=== PATIENT | male | born 1955 | race Caucasian/White ===

== ENCOUNTER 2018-12-02 06:56 | Observation (INO) | payer OTHER ==
[~2018-12-02] VITALS: Ht 188 cm; Wt 108.5 kg
[2018-12-02] VITALS (15 sets, daily range): BP systolic 113–170; BP diastolic 64–111
[2018-12-02 07:33] LABS: CLARITY,URINE CLEAR (Clear); COLOR,URINE AMBER (Yellow); GLUCOSE, URINE NEGATIVE (Neg); KETONES,URINE TRACE mg/dl (Neg); LEUKOCYTE ESTERASE ,URINE NEGATIVE (Neg); OCCULT BLOOD,URINE TRACE-INTACT (Neg); PROTEIN,URINE TRACE mg/dl (Neg)
[2018-12-02 07:38] LABS: HEMATOCRIT 51.6 % (42.0-52.0); MONOCYTES # (AUTO) 0.8 X10'3 (0-0.9); MONOCYTES % (AUTO) 6.2 % (2-12); WHITE BLOOD COUNT 12.7 X10'3 (4.5-11.0)
[2018-12-02 07:40] LABS: UA COLLECTION TYPE CLN CATCH MIDSTREAM
[2018-12-02 07:40] LABS: BASOPHILS % (AUTO) 0.3 % (0-1); EOSINOPHILS % (AUTO) 0.2 % (0-6); HEMOGLOBIN 17.8 g/dl (14.0-17.9); LYMPHOCYTES # (AUTO) 1.8 X10'3 (1.1-4.8); LYMPHOCYTES % (AUTO) 13.8 % (21-51); MEAN CORPUSCULAR HEMOGLOBIN 34.2 PG (27.0-31.0); MEAN CORPUSCULAR HGB CONC 34.4 g/dL (33.0-36.5); MEAN CORPUSCULAR VOLUME 99.3 FL (78-98); MEAN PLATELET VOLUME 8.1 FL (7.4-10.4); NEUTROPHILS # (AUTO) 10.1 X10'3 (1.8-7.7); NEUTROPHILS % (AUTO) 79.5 % (42-75); PLATELET COUNT 189 X10'3 (140-440); RED CELL DISTRIBUTION WIDTH 14.2 % (11.5-14.5)
[2018-12-02 07:45] LABS: NITRITES, URINE NEGATIVE (Neg)
[2018-12-02 07:46] LABS: BACTERIA,URINE NONE SEEN /HPF (Neg); MUCUS STRANDS FEW /LPF (Neg); RBC,URINE NONE SEEN /HPF (0-2); SQUAMOUS EPITHELIAL CELL,UR FEW /LPF (FEW); WBC,URINE 0-4 /HPF (0-4)
[2018-12-02 07:54] LABS: ANION GAP 13 (8-16); BILIRUBIN,TOTAL 1.8 MG/DL (0.1-1.0); BLOOD UREA NITROGEN 11 MG/DL (7-18); BUN/CREATININE RATIO 8.5 (5.4-32.0); CALCIUM 9.4 MG/DL (8.5-10.1); CHLORIDE 101 MMOL/L (99-107); CREATININE 1.29 MG/DL (0.60-1.10); GLUCOSE 117 MG/DL (70-104); POTASSIUM 3.6 MMOL/L (3.5-5.1); SODIUM 137 MMOL/L (135-145); TOTAL CARBON DIOXIDE 22.6 MMOL/L (24-32); TOTAL PROTEIN 7.7 G/DL (6.4-8.2); eGFR 56 ML/MIN
[2018-12-02 07:55] LABS: ALANINE AMINOTRANSFERASE 44 U/L (12-78); ALBUMIN 3.7 G/DL (3.4-5.0); ALBUMIN/GLOBULIN RATIO 0.9 (1.1-1.5); ALKALINE PHOSPHATASE 118 IU/L (46-116); ASPARTATE AMINO TRANSFERASE 27 U/L (10-37); LIPASE 84 U/L (73-393)
[2018-12-02] MEDS ORDERED: cefoxitin sod inj 2,000 MG in normal saline 100ml IV soln 100 ML IV SCH (07:55)
[2018-12-02] MEDS ORDERED: ondansetron/PF 4mg/2ml inj IV ONE (07:55)
[2018-12-02] MEDS ORDERED: normal saline 1000ML IV soln IV ONE (07:55)
[2018-12-02] MEDS ORDERED: ceFOXitin sod/dextrose 2g/50ml 50 ML IV ONE (08:00)
[2018-12-02] MEDS ORDERED: potassium Cl 20 mEq SR tablet PO PRN ×2 (09:20)
[2018-12-02] MEDS ORDERED: magnesium 4gm in 100ml NS 100 ML IV PRN (09:20)
[2018-12-02] MEDS ORDERED: acetaminophen 325mg tablet PO PRN (09:20)
[2018-12-02] MEDS ORDERED: potassium CL 10mEq/100ml bag 100 ML IV PRN ×2 (09:20)
[2018-12-02] MEDS ORDERED: magnesium Cl slow-release 64mg tablet PO PRN (09:20)
[2018-12-02] MEDS ORDERED: magnesium 2GM in 50ml NS 50 ML IV PRN (09:20)
[2018-12-02] MEDS ORDERED: ondansetron/PF 4mg/2ml inj IV PRN ×2 (09:20→11:40)
[2018-12-02] MEDS ORDERED: nicotine 21mg patch - 24 hr TD ONE (09:25)
[2018-12-02] MEDS ORDERED: NO HOME MEDS (09:32)
[2018-12-02] MEDS: levoFLOXACIN-Levaquin 500mg/D5 100 ML IV SCH (09:42)
[2018-12-02] MEDS: HYDROmorphone inj. 0.5 MG/0.5 ML DISP.SYRIN IV PRN ×2 (10:02→16:37)
[2018-12-02] MEDS ORDERED: LIDOcaine 1% 30ml preserv. free vial ONE (11:16)
[2018-12-02] MEDS ORDERED: BUPIVAcaine/PF 2.5 mg/ml (0.25%) 30ml vial ONE (11:16)
[2018-12-02] MEDS ORDERED: ringers solution, lacted 1,000 ML IV SCH (11:39)
[2018-12-02] MEDS ORDERED: meperidine/PF 25mg/ml syringe IV PRN ×3 (11:40)
[2018-12-02] MEDS ORDERED: morphine 4 MG/ML inj SYRINge IV PRN ×2 (11:40)
[2018-12-02] MEDS ORDERED: proCHLORperazine 10 MG/2 ml inj IV PRN (11:40)
[2018-12-02] MEDS ORDERED: HYDROmorphone inj. 0.5 MG/0.5 ML DISP.SYRIN IV ONE (11:45)
[2018-12-02] MEDS ORDERED: ceFOXitin 2 GM ADDVANTGE BAG 50 ML IV ONE (12:25)
[2018-12-02] MEDS ORDERED: fentaNYL/PF 50MCG/1 ML 2ML syringe ONE (12:26)
[2018-12-02] MEDS ORDERED: midazolam 2 mg/2 ml injection ONE (12:27)
[2018-12-02] MEDS ORDERED: propofol inj 20 ML IV ONE (12:29)
[2018-12-02] MEDS ORDERED: neostigmine methylsulfate 1 MG/ML 10ml vial ONE (13:05)
[2018-12-02] MEDS ORDERED: rocuronium 10mg/ml inj IV ONE (13:05)
[2018-12-02] MEDS ORDERED: glycopyrrolate 0.2mg/ml inj ONE (13:09)
[2018-12-02] MEDS ORDERED: HYDROcodone/acetaminophen 5mg/325mg tablet PO PRN ×2 (13:25)
--- NOTE | 2018-12-02 13:26 | NUR ---
Received from OR via , accompanied by Anesthesiologist DR LOFTON and report given by Anesthesiolgist. AWAKENS TO VOICE. VITALS STABLE. DRESSINGS DI. CECI PAIN. ABD SOFT.
--- NOTE | 2018-12-02 14:16 | NUR ---
Received report from LUCY Miguel in recovery. received patient to floor. patient pleasant, reports minimal pain at this time. will continue to monitor.
--- NOTE | 2018-12-02 14:16 | NUR ---
Report called to receiving nurse. Transferred via [facility] . Special Issues communicated to receiving nurse. AWAKE AND ORIENTED. VITALS STABLE. DRESSINGS DI. CECI PAIN. TO SURGICAL RM 348B AT THIS TIME.
[2018-12-02] MEDS: ketorolac tromethamine 15mg/ml inj. IV SCH ×2 (14:32→19:38)
[2018-12-02] MEDS: metroNIDAZOLE-Flagyl 500mg/NS 100 ML IV SCH (16:18)
[2018-12-02] MEDS: normal saline 1000ml 1,000 ML IV SCH ×2 (16:18→19:19)
[2018-12-02] MEDS ORDERED: enalaprilat dihydrate 2.5mg/2ml vial IV ONE (17:25)
--- NOTE | 2018-12-02 17:45 | NUR ---
Patient's blood pressure elevated at 171/111, notified Dr. Simmons and Dr. Ochoa. Per Dr. Ochoa, gave patient Vasotec 1.25 mg IV one time, patient's blood pressure now coming down at 151/89. Will continue to monitor.
--- NOTE | 2018-12-02 18:30 | NUR ---
Patient in room [facility] 348. I have received report from LUCY Lima and had the opportunity to ask questions and assume patient care.
--- NOTE | 2018-12-02 18:32 | NUR ---
Problems reprioritized. Patient report given, questions answered & plan of care reviewed with LUCY Lopez.
--- NOTE | 2018-12-02 18:43 | NUR ---
pt refusing to be connected to IVF.
[2018-12-02] MEDS: lactobacillus rhamnosus 10,000 MMU CELLS/CAPSULE PO SCH (19:37)
[2018-12-02] MEDS: calcium carbonate 500mg chew tablet PO SCH (20:41)
[2018-12-03] MEDS: ketorolac tromethamine 15mg/ml inj. IV SCH ×2 (02:29→07:19)
[2018-12-03 05:10] LABS: ALBUMIN 2.9 G/DL (3.4-5.0); ANION GAP 11 (8-16); BLOOD UREA NITROGEN 10 MG/DL (7-18); BUN/CREATININE RATIO 9.6 (5.4-32.0); CALCIUM 8.3 MG/DL (8.5-10.1); CHLORIDE 104 MMOL/L (99-107); CREATININE 1.04 MG/DL (0.60-1.10); GLUCOSE 128 MG/DL (70-104); MAGNESIUM 1.7 MG/DL (1.5-2.4); POTASSIUM 4.6 MMOL/L (3.5-5.1); SODIUM 137 MMOL/L (135-145); TOTAL CARBON DIOXIDE 22.1 MMOL/L (24-32); eGFR 72 ML/MIN
[2018-12-03] MEDS: normal saline 1000ml 1,000 ML IV SCH (05:19)
--- NOTE | 2018-12-03 06:21 | NUR ---
Problems reprioritized. Patient report given, questions answered & plan of care reviewed with LUCY Lima.
--- NOTE | 2018-12-03 06:28 | NUR ---
Patient in room [facility] 348. I have received report from SHAISTA MANUEL RN and had the opportunity to ask questions and assume patient care.
[2018-12-03 06:57] VITALS: BP 145/100
[2018-12-03] MEDS: lactobacillus rhamnosus 10,000 MMU CELLS/CAPSULE PO SCH (07:18)
[2018-12-03] MEDS: calcium carbonate 500mg chew tablet PO SCH ×2 (07:18→12:30)
[2018-12-03] MEDS: levoFLOXACIN-Levaquin 500mg/D5 100 ML IV SCH (07:19)
[2018-12-03] MEDS ORDERED: K and/or MAG REPLACEMENT MC SCH (08:00)
[2018-12-03] MEDS: metroNIDAZOLE-Flagyl 500mg/NS 100 ML IV SCH ×2 (08:44)
[2018-12-03 09:31] LABS: BASOPHILS % (AUTO) 0.1 % (0-1); EOSINOPHILS % (AUTO) 0 % (0-6); HEMATOCRIT 46.4 % (42.0-52.0); HEMOGLOBIN 15.6 g/dl (14.0-17.9); LYMPHOCYTES # (AUTO) 0.6 X10'3 (1.1-4.8); LYMPHOCYTES % (AUTO) 6.4 % (21-51); MEAN CORPUSCULAR HEMOGLOBIN 34.1 PG (27.0-31.0); MEAN CORPUSCULAR HGB CONC 33.6 g/dL (33.0-36.5); MEAN CORPUSCULAR VOLUME 101.4 FL (78-98); MEAN PLATELET VOLUME 8.8 FL (7.4-10.4); MONOCYTES # (AUTO) 0.4 X10'3 (0-0.9); MONOCYTES % (AUTO) 4.1 % (2-12); NEUTROPHILS % (AUTO) 89.4 % (42-75); PLATELET COUNT 156 X10'3 (140-440); RED BLOOD COUNT 4.58 X10'6 (4.70-6.10); RED CELL DISTRIBUTION WIDTH 13.9 % (11.5-14.5); WHITE BLOOD COUNT 10.1 X10'3 (4.5-11.0)
[2018-12-03 11:44] VITALS: BP 148/88
== END 2018-12-03 12:35 | disposition home or self-care (01) ==
LOC: ER 06:57 → SUR 3N 12:54
PROVIDERS: ADMIT Internal Medicine; ATTEND Internal Medicine
DX: K35.891 Other acute appendicitis without perforation, with gangrene (principal); A41.9 Sepsis, unspecified organism; K80.20 Calculus of gallbladder without cholecystitis without obstruction; K21.9 Gastro-esophageal reflux disease without esophagitis; R11.2 Nausea with vomiting, unspecified; K57.30 Diverticulosis of large intestine without perforation or abscess without bleeding; R79.89 Other specified abnormal findings of blood chemistry; F32.9 Major depressive disorder, single episode, unspecified; I10 Essential (primary) hypertension; I96 Gangrene, not elsewhere classified; J18.9 Pneumonia, unspecified organism; F17.210 Nicotine dependence, cigarettes, uncomplicated; Z98.1 Arthrodesis status; Z88.5 Allergy status to narcotic agent
CPT/HCPCS: 36415; 44970; 74176; 80048; 80053; 81001; 83605; 83690; 83735; 85025; 85610; 87040; 87081; 96361; 96365; 96366; 96367; 96375; 96376; 99284; G0378; J0694; J1170; J1885; J1956; J2001; J2175; J2250; J2704; J2710; J3010; J3490; J7030; J7120; A4215; A4618; A7000

== ENCOUNTER 2019-07-26 06:10 | Inpatient (IN) | payer OTHER ==
[~2019-07-26] VITALS: Ht 188 cm; Wt 100.0 kg
[~2019-07-26 06:10] MED LIST: NO HOME MEDS
[2019-07-26] MEDS ORDERED: adenosine 3mg/ml 2ml vial IV ONE ×3 (06:24→06:30)
[2019-07-26] MEDS ORDERED: diltiazem 5mg/ml 5ml inj. IV ONE ×3 (06:25→06:50)
[2019-07-26] MEDS ORDERED: morphine 4 MG/ML inj SYRINge ONE (06:27)
[2019-07-26 06:28] LABS: BASOPHILS % (AUTO) 0.2 % (0-1); EOSINOPHILS % (AUTO) 0.3 % (0-6); HEMATOCRIT 54.4 % (42.0-52.0); LYMPHOCYTES # (AUTO) 2.2 X10'3 (1.1-4.8); LYMPHOCYTES % (AUTO) 15.4 % (21-51); MEAN CORPUSCULAR HEMOGLOBIN 34.9 PG (27.0-31.0); MEAN CORPUSCULAR HGB CONC 34.3 g/dL (33.0-36.5); MEAN CORPUSCULAR VOLUME 101.9 FL (78-98); MEAN PLATELET VOLUME 8.3 FL (7.4-10.4); MONOCYTES # (AUTO) 1.4 X10'3 (0-0.9); MONOCYTES % (AUTO) 9.4 % (2-12); NEUTROPHILS # (AUTO) 10.8 X10'3 (1.8-7.7); NEUTROPHILS % (AUTO) 74.7 % (42-75); PLATELET COUNT 312 X10'3 (140-440); RED BLOOD COUNT 5.34 X10'6 (4.70-6.10); RED CELL DISTRIBUTION WIDTH 13.8 % (11.5-14.5); WHITE BLOOD COUNT 14.4 X10'3 (4.5-11.0)
[2019-07-26] MEDS ORDERED: morphine 2 MG/ML inj. syringe IV STA (06:28)
[2019-07-26 06:32] LABS: HEMOGLOBIN 18.7 g/dl (14.0-17.9)
[2019-07-26] MEDS ORDERED: normal saline 1000ML IV soln IVB ONE (06:35)
[2019-07-26 06:41] LABS: ALANINE AMINOTRANSFERASE 38 U/L (12-78); ALBUMIN 3.9 G/DL (3.4-5.0); ALBUMIN/GLOBULIN RATIO 0.9 (1.1-1.5); ALKALINE PHOSPHATASE 182 IU/L (46-116); ANION GAP 11 (8-16); ASPARTATE AMINO TRANSFERASE 49 U/L (10-37); BILIRUBIN,TOTAL 2.4 MG/DL (0.1-1.0); BLOOD UREA NITROGEN 11 MG/DL (7-18); BUN/CREATININE RATIO 7.3 (5.4-32.0); CALCIUM 10.5 MG/DL (8.5-10.1); CHLORIDE 100 MMOL/L (99-107); GLUCOSE 130 MG/DL (70-104); POTASSIUM 3.8 MMOL/L (3.5-5.1); SODIUM 138 MMOL/L (135-145); TOTAL PROTEIN 8.2 G/DL (6.4-8.2); eGFR 47 ML/MIN
[2019-07-26] MEDS ORDERED: morphine 2 MG/ML inj. syringe IV ONE (06:45)
[2019-07-26] MEDS ORDERED: FEXO180T94 PO (07:05)
[2019-07-26] MEDS ORDERED: acetaminophen 325mg tablet PO PRN (07:20)
[2019-07-26] MEDS ORDERED: ondansetron/PF 4mg/2ml inj IV PRN (07:20)
[2019-07-26] MEDS ORDERED: magnesium hydroxide 30ml (MOM) UD suspension PO PRN (07:20)
[2019-07-26] MEDS ORDERED: mag hydrox/Alum hydrox/simeth 30ml oral suspension PO PRN (07:20)
--- NOTE | 2019-07-26 07:26 | NUR ---
Pt is aware that we need a urine sample. Pt unable to give a sample at this time.
[2019-07-26] MEDS ORDERED: diltiazem-NS 100mg/100ml 100 ML IV SCH (07:30)
[2019-07-26] MEDS: normal saline 1000ml 1,000 ML IV SCH ×2 (07:53→18:03)
[2019-07-26 09:05] LABS: CLARITY,URINE CLEAR (Clear); COLOR,URINE YELLOW (Yellow); GLUCOSE, URINE NEGATIVE (Neg); KETONES,URINE 15 mg/dl (Neg); LEUKOCYTE ESTERASE ,URINE TRACE (Neg); NITRITES, URINE NEGATIVE (Neg); OCCULT BLOOD,URINE TRACE-INTACT (Neg); PROTEIN,URINE NEGATIVE (Neg)
[2019-07-26 09:06] LABS: UA COLLECTION TYPE URINAL
[2019-07-26 09:11] LABS: HYALINE CASTS 0-3 /LPF (NEGATIVE); MUCUS STRANDS FEW /LPF (Neg); SQUAMOUS EPITHELIAL CELL,UR FEW /LPF (FEW)
[2019-07-26 09:12] LABS: RENAL CELLS, URINE FEW /HPF; TRANSITIONAL EPI CELLS,URINE FEW /HPF
[2019-07-26 09:13] LABS: BACTERIA,URINE FEW /HPF (Neg); RBC,URINE 0-2 /HPF (0-2); WBC,URINE 0-4 /HPF (0-4)
--- NOTE | 2019-07-26 09:34 | NUR ---
Tried to call report to PCU, informed that the nurse would call back within 5 minutes.
--- NOTE | 2019-07-26 09:40 | NUR ---
Patient in room PCU 3016. I have received report from Amelia AYALA ER and had the opportunity to ask questions and assume patient care.
[2019-07-26 10:10] VITALS: BP 143/56
[2019-07-26] MEDS: enoxaparin 100mg/ml syringe SUBCUT SCH ×2 (11:30→20:06)
[2019-07-26] MEDS: morphine 2 MG/ML inj. syringe IV PRN ×3 (11:44→20:07)
[2019-07-26] MEDS: metoprolol succinate 25mg (24-HOUR) SR. Tablet PO SCH (11:44)
[2019-07-26] MEDS: HYDROcodone/acetaminophen 5mg/325mg tablet PO PRN ×2 (13:33→18:11)
[2019-07-26 15:00] VITALS: BP 129/85
[2019-07-26 18:00] VITALS: BP 131/82
--- NOTE | 2019-07-26 18:25 | NUR ---
Problems reprioritized. Patient report given, questions answered & plan of care reviewed with Meghna AYALA.
--- NOTE | 2019-07-26 18:25 | NUR ---
Patient in room PCU 3018M. I have received report from LUCY Ty and had the opportunity to ask questions and assume patient care. Patient denies CP, SOB. dizziness, n/v and rated pain 9/10. Waiting for DR. Rosario to call with new prescription of pain med if required
[2019-07-26] MEDS ORDERED: HYDROcodone/acetaminophen 10/325mg tab PO PRN (19:00)
[2019-07-26 22:00] VITALS: BP 119/73
--- NOTE | 2019-07-27 01:36 | NUR ---
Paged snt to Dr. Rosario Page Sent promotional table spacer PAGER ID: [phone] MESSAGE: FYLoni: Rommel Lucio in room # 3016-B refused to continue administration of NS @100ml/hr. 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 He has been drinking plenty of fluid ; urine output from 1800 to now is 1700 Corinna Bloom
[2019-07-27 02:00] VITALS: BP 119/71
[2019-07-27] MEDS: morphine 2 MG/ML inj. syringe IV PRN (02:37)
[2019-07-27] MEDS: normal saline 1000ml 1,000 ML IV SCH (03:20)
[2019-07-27 05:16] LABS: BASOPHILS % (AUTO) 0.7 % (0-1); EOSINOPHILS # (AUTO) 0.1 X10'3 (0-0.9); EOSINOPHILS % (AUTO) 1.2 % (0-6); HEMATOCRIT 42.9 % (42.0-52.0); HEMOGLOBIN 14.5 g/dl (14.0-17.9); LYMPHOCYTES # (AUTO) 1.5 X10'3 (1.1-4.8); MEAN CORPUSCULAR HEMOGLOBIN 34.8 PG (27.0-31.0); MEAN CORPUSCULAR HGB CONC 33.7 g/dL (33.0-36.5); MEAN CORPUSCULAR VOLUME 103.1 FL (78-98); MEAN PLATELET VOLUME 7.9 FL (7.4-10.4); MONOCYTES # (AUTO) 0.6 X10'3 (0-0.9); MONOCYTES % (AUTO) 9.7 % (2-12); NEUTROPHILS # (AUTO) 3.8 X10'3 (1.8-7.7); NEUTROPHILS % (AUTO) 63.4 % (42-75); PLATELET COUNT 159 X10'3 (140-440); RED BLOOD COUNT 4.16 X10'6 (4.70-6.10); RED CELL DISTRIBUTION WIDTH 13.9 % (11.5-14.5); WHITE BLOOD COUNT 5.9 X10'3 (4.5-11.0)
[2019-07-27 05:39] LABS: ALBUMIN 2.8 G/DL (3.4-5.0); ANION GAP 7 (8-16); BLOOD UREA NITROGEN 10 MG/DL (7-18); BUN/CREATININE RATIO 9.5 (5.4-32.0); CALCIUM 8.4 MG/DL (8.5-10.1); CHLORIDE 105 MMOL/L (99-107); CREATININE 1.05 MG/DL (0.60-1.10); GLUCOSE 102 MG/DL (70-104); POTASSIUM 3.5 MMOL/L (3.5-5.1); SODIUM 138 MMOL/L (135-145); TOTAL CARBON DIOXIDE 26.5 MMOL/L (24-32); eGFR 71 ML/MIN
[2019-07-27 06:00] VITALS: BP 135/88
--- NOTE | 2019-07-27 06:33 | NUR ---
Problems reprioritized. Patient report given, questions answered & plan of care reviewed with LUCY Mireles. patient stable at shift change
--- NOTE | 2019-07-27 06:35 | NUR ---
Patient in room PCU 3016B. I have received report from Jerry AYALA and had the opportunity to ask questions and assume patient care.
[2019-07-27] MEDS ORDERED: potassium Cl 20 mEq SR tablet PO STA (08:39)
[2019-07-27] MEDS: metoprolol succinate 25mg (24-HOUR) SR. Tablet PO SCH (09:16)
[2019-07-27] MEDS ORDERED: METO-395 PO (10:54)
[2019-07-27 11:00] VITALS: BP 145/94
--- NOTE | 2019-07-27 11:32 | NUR ---
Cindy MEREDITH PAGER ID: [phone] MESSAGE: Aline dixon [phone]. RE Morgan Lucio [id number]. [facility] Will write TOV hardcopy order of your discharge medication prescription
--- NOTE | 2019-07-27 12:22 | NUR ---
Per MD, patient stable for discharge home. Discharge packet provided to patient and all questions answered. Hardcopy of discharge medication Metoprolol 25 mg daily given to [facility] to [facility] to [facility]. Unable to make followup appt because it is Sunday, but patient understands to make appt with Dr Ibrahim tomorrow 07/27. IV removed with catheter intact and tele monitor removed. Patient ambulated self from floor accompanied by RN and driven home with via private vehicle.
== END 2019-07-27 12:21 | disposition home or self-care (01) | DRG 310 ==
LOC: ER 06:11 → ED HOLD 07:20 → EDBEDREQ 09:18 → PCU 3S 09:58
PROVIDERS: ADMIT Family Medicine; ATTEND Family Medicine
DX: I47.1 Supraventricular tachycardia (principal); F17.210 Nicotine dependence, cigarettes, uncomplicated; G89.29 Other chronic pain; F32.9 Major depressive disorder, single episode, unspecified; M54.9 Dorsalgia, unspecified; I10 Essential (primary) hypertension; K21.9 Gastro-esophageal reflux disease without esophagitis; Z90.49 Acquired absence of other specified parts of digestive tract; Z98.1 Arthrodesis status; Z79.899 Other long term (current) drug therapy; Z71.6 Tobacco abuse counseling
CPT/HCPCS: 36415; 71045; 80048; 80053; 81001; 84443; 84484; 85025; 87081; 93005; 93306; 96374; 96375; 96376; 99285; G0378; J0153; J1650; J2270; J2405; J3490; J7030

== ENCOUNTER 2020-09-11 15:39 | Emergency (ER) | payer OTHER ==
[~2020-09-11] VITALS: Ht 188 cm; Wt 102.3 kg
[~2020-09-11 15:39] MED LIST changes: +FEXO180T94 PO; +METO-395 PO; -NO HOME MEDS
[2020-09-11] MEDS ORDERED: normal saline 1000ml 1,000 ML IVB ONE ×2 (15:50)
--- NOTE | 2020-09-11 16:07 | NUR ---
pt to CT
[2020-09-11 16:22] LABS: BASOPHILS # (AUTO) 0.1 X10'3 (0-0.2); BASOPHILS % (AUTO) 1.3 % (0-1); EOSINOPHILS # (AUTO) 0.1 X10'3 (0-0.9); EOSINOPHILS % (AUTO) 1.1 % (0-6); HEMATOCRIT 44.9 % (42.0-52.0); HEMOGLOBIN 15.6 g/dl (14.0-17.9); LYMPHOCYTES # (AUTO) 2.7 X10'3 (1.1-4.8); LYMPHOCYTES % (AUTO) 37.9 % (21-51); MEAN CORPUSCULAR HEMOGLOBIN 37.6 PG (27.0-31.0); MEAN CORPUSCULAR HGB CONC 34.6 g/dL (33.0-36.5); MEAN CORPUSCULAR VOLUME 108.6 FL (78-98); MONOCYTES # (AUTO) 0.5 X10'3 (0-0.9); MONOCYTES % (AUTO) 7.6 % (2-12); NEUTROPHILS # (AUTO) 3.7 X10'3 (1.8-7.7); NEUTROPHILS % (AUTO) 52.1 % (42-75); PLATELET COUNT 221 X10'3 (140-440); RED BLOOD COUNT 4.14 X10'6 (4.70-6.10); RED CELL DISTRIBUTION WIDTH 13.6 % (11.5-14.5)
[2020-09-11 16:28] LABS: ALANINE AMINOTRANSFERASE 134 U/L (12-78); ALBUMIN 3.9 G/DL (3.4-5.0); ALKALINE PHOSPHATASE 183 IU/L (46-116); ANION GAP 17 (8-16); ASPARTATE AMINO TRANSFERASE 171 U/L (10-37); BILIRUBIN,TOTAL 1.2 MG/DL (0.1-1.0); BLOOD UREA NITROGEN 9 MG/DL (7-18); BUN/CREATININE RATIO 7.1 (5.4-32.0); CALCIUM 9.4 MG/DL (8.5-10.1); CHLORIDE 98 MMOL/L (99-107); CREATININE 1.27 MG/DL (0.60-1.10); GLUCOSE 93 MG/DL (70-104); POTASSIUM 3.5 MMOL/L (3.5-5.1); SODIUM 136 MMOL/L (135-145); TOTAL CARBON DIOXIDE 21.3 MMOL/L (24-32); TOTAL PROTEIN 7.7 G/DL (6.4-8.2); eGFR 57 ML/MIN
[2020-09-11 16:38] LABS: ETHANOL 0.306 GM/DL (0.0-0.010)
[2020-09-11] MEDS ORDERED: ketorolac trometh. 30mg/ml inj. IV ONE (17:20)
[2020-09-11] MEDS ORDERED: bacitracin 15gm ointment TP ONE (17:20)
[2020-09-11 18:12] VITALS: BP 111/71
[2020-09-11 19:23] LABS: URINE AMPHETAMINE SCREEN NEGATIVE (Neg); URINE BARBITUATE SCREEN NEGATIVE (Neg); URINE BENZODIAZEPINES SCREEN NEGATIVE (Neg); URINE CANNABINOID SCREEN NEGATIVE (Neg); URINE COCAINE SCREEN NEGATIVE (Neg); URINE METHADONE SCREEN NEGATIVE (Neg); URINE OPIATE SCREEN NEGATIVE (Neg); URINE PHENCYCLIDINE SCREEN NEGATIVE (Neg)
== END 2020-09-11 19:41 | disposition home or self-care (01) ==
LOC: ER 15:39
DX: S50.822A Blister (nonthermal) of left forearm, initial encounter (principal); S50.821A Blister (nonthermal) of right forearm, initial encounter; F10.129 Alcohol abuse with intoxication, unspecified; E86.0 Dehydration; I10 Essential (primary) hypertension; K21.9 Gastro-esophageal reflux disease without esophagitis; Z90.49 Acquired absence of other specified parts of digestive tract; Z98.890 Other specified postprocedural states; Z79.899 Other long term (current) drug therapy; W01.198A Fall on same level from slipping, tripping and stumbling with subsequent striking against other object, initial encounter; Y93.89 Activity, other specified; Y92.89 Other specified places as the place of occurrence of the external cause; Y99.8 Other external cause status; Y90.8 Blood alcohol level of 240 mg/100 ml or more
CPT/HCPCS: 36415; 70450; 71045; 80053; 80305; 80320; 83880; 84484; 85025; 93005; 96361; 96374; 99285; J1885; J7030

== ENCOUNTER 2023-01-23 06:44 | Day surgery (SDC) | payer MEDICARE, OTHER ==
[~2023-01-23] VITALS: Ht 188 cm; Wt 115.3 kg
[2023-01-23] VITALS (10 sets, daily range): BP systolic 86–132; BP diastolic 46–79; PULSE 67–77; RESP 12–16; TEMP 97.3; O2SAT 95–99
[~2023-01-23 06:44] MED LIST changes: +ESCI20TA39 PO; -FEXO180T94 PO
[2023-01-23] MEDS: albumin 25% 100mL bottle x 1 IV PRN ×3 (07:55→09:50)
== END 2023-01-23 10:20 | disposition home or self-care (01) ==
LOC: SSTAY O 06:44
PROVIDERS: ATTEND Radiology Vascular & Interventional Radiology
DX: K70.31 Alcoholic cirrhosis of liver with ascites (principal); I10 Essential (primary) hypertension; K21.9 Gastro-esophageal reflux disease without esophagitis; F10.10 Alcohol abuse, uncomplicated; I47.10 Supraventricular tachycardia, unspecified; F32.A Depression, unspecified; Z98.890 Other specified postprocedural states; Z79.899 Other long term (current) drug therapy
CPT/HCPCS: 49083; C1729; P9047; 96360; A6258

== ENCOUNTER 2023-02-26 06:30 | Day surgery (SDC) | payer OTHER ==
[2023-02-26] VITALS (11 sets, daily range): BP systolic 80–118; BP diastolic 44–83; PULSE 8–92; RESP 16; TEMP 98.8; O2SAT 94–98
[~2023-02-26] VITALS: Ht 188 cm; Wt 112.0 kg
[2023-02-26] MEDS ORDERED: SPIR50TA5 PO (06:53)
[2023-02-26] MEDS ORDERED: FURO20TA4 PO (06:53)
[2023-02-26] MEDS: albumin 25% 100mL bottle x 1 IV PRN ×3 (09:19→10:18)
== END 2023-02-26 11:00 | disposition home or self-care (01) ==
LOC: SSTAY O 06:30
PROVIDERS: ATTEND Radiology Vascular & Interventional Radiology
DX: K70.31 Alcoholic cirrhosis of liver with ascites (principal); F32.A Depression, unspecified; I10 Essential (primary) hypertension; I47.10 Supraventricular tachycardia, unspecified; K21.9 Gastro-esophageal reflux disease without esophagitis; F10.10 Alcohol abuse, uncomplicated; Z79.899 Other long term (current) drug therapy; Z98.890 Other specified postprocedural states
CPT/HCPCS: 49083; C1729; J7030; P9047; 96360; A6258

== ENCOUNTER 2023-03-20 06:37 | Day surgery (SDC) | payer OTHER ==
[2023-03-20] VITALS (8 sets, daily range): BP systolic 89–124; BP diastolic 56–77; PULSE 72–84; RESP 16; TEMP 97.4; O2SAT 92–96
[~2023-03-20] VITALS: Ht 188 cm; Wt 108.7 kg
[~2023-03-20 06:37] MED LIST changes: +FURO20TA4 PO; +SPIR50TA5 PO
[2023-03-20] MEDS ORDERED: normal saline 1000ml 1,000 ML IV PRN (07:05)
[2023-03-20] MEDS: albumin 25% 100mL bottle x 1 IV PRN ×2 (07:14→08:28)
== END 2023-03-20 10:00 | disposition home or self-care (01) ==
LOC: SSTAY O 06:37
PROVIDERS: ATTEND Radiology Vascular & Interventional Radiology
DX: K70.31 Alcoholic cirrhosis of liver with ascites (principal); F32.A Depression, unspecified; I10 Essential (primary) hypertension; I47.10 Supraventricular tachycardia, unspecified; F10.10 Alcohol abuse, uncomplicated; K21.9 Gastro-esophageal reflux disease without esophagitis; Z98.890 Other specified postprocedural states; Z79.899 Other long term (current) drug therapy
CPT/HCPCS: 49083; C1729; P9047; A6258

== ENCOUNTER 2023-04-05 06:08 | Day surgery (SDC) | payer OTHER ==
[2023-04-05 06:35] VITALS: BP 107/72; PULSE 64; RESP 16; TEMP 98.6; O2SAT 96
[2023-04-05] MEDS: albumin 25% 100mL bottle x 1 IV PRN ×2 (07:05→07:56)
[2023-04-05 08:28] VITALS: BP 107/62; PULSE 85; RESP 14; O2SAT 95
[2023-04-05 08:43] VITALS: BP 102/63; PULSE 85; RESP 14; O2SAT 95
[2023-04-05 08:58] VITALS: BP 101/61; PULSE 84; RESP 14; O2SAT 95
[2023-04-05 09:13] VITALS: BP 101/60; PULSE 82; RESP 14; O2SAT 95
== END 2023-04-05 09:35 | disposition home or self-care (01) ==
LOC: SSTAY O 06:08
PROVIDERS: ATTEND Radiology Vascular & Interventional Radiology
DX: K70.31 Alcoholic cirrhosis of liver with ascites (principal); F32.A Depression, unspecified; I10 Essential (primary) hypertension; F10.10 Alcohol abuse, uncomplicated; K21.9 Gastro-esophageal reflux disease without esophagitis; I47.10 Supraventricular tachycardia, unspecified; Z98.890 Other specified postprocedural states; Z79.899 Other long term (current) drug therapy
CPT/HCPCS: 49083; C1729; P9047; 96360; A6258

== ENCOUNTER 2023-04-26 06:34 | Day surgery (SDC) | payer OTHER ==
[2023-04-26] VITALS (7 sets, daily range): BP systolic 91–111; BP diastolic 58–84; PULSE 80–99; RESP 15–17; TEMP 97.9; O2SAT 93–95
[~2023-04-26] VITALS: Ht 188 cm; Wt 106.1 kg
[2023-04-26] MEDS ORDERED: OMEP40CA21 PO (06:49)
[2023-04-26] MEDS ORDERED: POTA-206 PO (06:49)
[2023-04-26] MEDS ORDERED: LACT10SO3 PO (06:49)
[2023-04-26] MEDS: albumin 25% 100mL bottle x 1 IV PRN (08:15)
== END 2023-04-26 10:00 | disposition home or self-care (01) ==
LOC: SSTAY O 06:34
PROVIDERS: ATTEND Radiology Vascular & Interventional Radiology
DX: R18.8 Other ascites (principal); R14.0 Abdominal distension (gaseous); I10 Essential (primary) hypertension; K21.9 Gastro-esophageal reflux disease without esophagitis; F32.9 Major depressive disorder, single episode, unspecified; Z79.899 Other long term (current) drug therapy
CPT/HCPCS: 49083; C1729; P9047; A6258; A6449

== ENCOUNTER 2023-05-11 06:44 | Day surgery (SDC) | payer OTHER ==
[~2023-05-11] VITALS: Ht 188 cm; Wt 103.3 kg
[2023-05-11] VITALS (8 sets, daily range): BP systolic 94–115; BP diastolic 43–72; PULSE 69–83; RESP 15–16; TEMP 97.8; O2SAT 93–100
[~2023-05-11 06:44] MED LIST changes: +LACT10SO3 PO; +OMEP40CA21 PO; +POTA-206 PO
[2023-05-11] MEDS ORDERED: LIDO1ADH67 TOP (07:21)
[2023-05-11] MEDS: albumin 25% 100mL bottle x 1 IV PRN (08:56)
== END 2023-05-11 10:25 | disposition home or self-care (01) ==
LOC: SSTAY O 06:44
PROVIDERS: ATTEND Radiology Vascular & Interventional Radiology
DX: K70.31 Alcoholic cirrhosis of liver with ascites (principal); F32.A Depression, unspecified; I47.10 Supraventricular tachycardia, unspecified; I10 Essential (primary) hypertension; K21.9 Gastro-esophageal reflux disease without esophagitis; I71.40 Abdominal aortic aneurysm, without rupture, unspecified; F10.10 Alcohol abuse, uncomplicated; Z79.899 Other long term (current) drug therapy
CPT/HCPCS: 49083; C1729; P9047; A6258; A6449

== ENCOUNTER 2024-07-14 21:13 | Inpatient (IN) | payer OTHER, MEDICARE ==
[~2024-07-14] VITALS: Ht 188 cm; Wt 150.0 kg
[~2024-07-14 21:13] MED LIST changes: -LACT10SO3 PO; +LIDO1ADH67 TOP
--- NOTE | 2024-07-14 22:57 | Physician Documentation ---
History of Present Illness ~ General Chief Complaint: General Stated Complaint: LOW URINE OUTPUT Time Seen by MD: 22:41 OK to notify your PCP?: Yes Source: patient Mode of Arrival: POV Exam Limitations: no limitations History of Present Illness Initial Comments This is a 68-year-old male who comes in complaining of multiple medical issues. The patient has a history of end-stage liver disease in his states his hepa tologist is in the [place] area and does not get to see him very often. [facility] and has a hard time getting appointments. You complains of increasing shortness of breath with increased swelling of his scrotum and bilateral lower extremities from his hips down to it was toes. He states at times he gets ascites but right now his abdomen and does not feel swollen. He was recently seen at [facility] were they did a workup and told him to increase his Lasix. The patient was states he has been increasing in his Lasix however he was having a increasingly decreased urine output. He was also complaining of pain in his back bilaterally. The patient states that he wants to go on palliative care. Medication Reconciliation Allergies: Coded Allergies: No Known Allergies (Unverified , 07/26/19) Scheduled Escitalopram Oxalate (Escitalopram Oxalate), 1 TAB PO DAILY, (Reported) Furosemide (Furosemide), 2 TAB PO DAILY, (Reported) Lidocaine (Lidocaine Pain Relief), 1 PATCH TOP DAILY, (Reported) Metoprolol Succinate (Metoprolol Succinate), 1 TAB PO DAILY, (Reported) Omeprazole (Prilosec), 1 CAP PO QAM, (Reported) Potassium Chloride (K-Dur), 1 TAB PO DAILY, (Reported) Spironolactone (Spironolactone), 2 TAB PO DAILY, (Reported) Past Medical History Past Medical History: Hypertension, GERD, Depression Past Surgical History: appendectomy, orthopedic surgeries Alcohol Use: Heavy Drug Use: none Lives with: Spouse Lives In: Home Occupation: employed Physical Exam Physical Exam Vital Signs: Temperature: 97.9, Source: Temporal, Heart Rate: 85, Respiratory Rate: 18, BP: 112/52, Pulse Oximetry: 93, Weight: 150.000 Oxygen Flow Rate: 0 Pulse Oximetry Reflects: adequate oxygenation General Appearance: alert, WD/WN, no apparent distress Respiratory No accessory muscle use or retractions. Lungs are clear to auscultation all holloway. Cardiovascular No rubs, gallops or murmurs. Extremities The patient has read +pitting edema from the tops of the feet to his upper thighs bilaterally. He also has edema of the bilateral upper extremities 1+ from the hands to the elbows. Neurologic: oriented x4, tattoo technician II-XII nml as tested, memory intact, oriented to time, oriented to person, oriented to place, oriented to events Skin: warm/dry Skin The patient has a slightly jaundice appearance. Progress Results/Orders Reviewed/noted all lab results: Yes Results/Orders Orders - MARK POWERS Urinalysis, Cult If Indicated (07/14/24 22:51) Chest,Single View (07/14/24 23:05) Electrocardiogram (07/14/24 22:51) Monitor (07/14/24 22:51) Saline Lock (07/14/24 22:51) Page Hospitalist (07/15/24 00:00) Completed Orders - MARK POWERS Cbc/Diff (07/14/24 22:51) PTT (07/14/24 22:51) Pt Inr (07/14/24 22:51) Chest,Single View (07/14/24 23:05) Electrocardiogram (07/14/24 22:51) Ammonia (07/14/24 22:51) CMP (07/14/24 22:51) PBNP (07/14/24 22:51) Furosemide Inj (Lasix Inj) (07/14/24 23:55) Vital Signs 07/14/24 07/14/24 21:22 23:19 Temp 97.9 97.9 Pulse 85 93 Resp 18 22 B/P (MAP) 112/52 112/74 (87) Pulse Ox 93 91 O2 Flow Rate 0 0 Laboratory Tests Test 07/14/24 23:14 White Blood Count 6.5 Red Blood Count 3.18 L Hemoglobin 10.8 L Hematocrit 32.1 L Mean Corpuscular Volume 100.9 H Mean Corpuscular Hemoglobin 33.9 H Mean Corpuscular Hemoglobin Concent 33.6 Red Cell Distribution Width 16.3 H Platelet Count 239 Mean Platelet Volume 8.2 Neutrophils (%) (Auto) 74.4 Lymphocytes (%) (Auto) 13.2 L Monocytes (%) (Auto) 10.3 Eosinophils (%) (Auto) 1.5 Basophils (%) (Auto) 0.6 Neutrophils # (Auto) 4.8 Lymphocytes # (Auto) 0.9 L Monocytes # (Auto) 0.7 Eosinophils # (Auto) 0.1 Basophils # (Auto) 0.0 CBC Comment Prothrombin Time 12.5 H INR International Normalized Ratio 1.2 Activated Partial Thromboplast Time 29 Coagulation Comments Sodium Level 134 L Potassium Level 4.3 Chloride Level 102 Carbon Dioxide Level 26.4 Anion Gap 6 L Blood Urea Nitrogen 30 H Creatinine 1.57 H Estimated GFR/1.73 m2 44 BUN/Creatinine Ratio 19.1 Glucose Level 90 Calcium Level 9.2 Total Bilirubin 2.5 H Aspartate Amino Transf (AST/SGOT) 20 Alanine Aminotransferase (ALT/SGPT) 13 Alkaline Phosphatase 160 H Ammonia 29 Pro-B-Type Natriuretic Peptide 2044 H Total Protein 7.3 Albumin 2.4 L Globulin 4.9 H Albumin/Globulin Ratio 0.5 L Chemistry Comments EKG/XRAY/CT/US/VASC/MRI EKG : Intepreting Monitor?: No Additional Comment In his rhythm rate of 77. Borderline right axis deviation. Low voltage precordial leads. Prolonged QT interval. Chest X-Ray : Interpreted By: self Additional Comments X-ray one view interpreted by me: Left pleural effusion. Enlarged cardiac silhouette. Pulmonary vascular congestion. No evidence of consolidation Medical Decision Making Findings Patient was retaining fluid pretty significantly. He has a pleural effusion, shortness of breath, edema of the bilateral upper lower extremities as well as the scrotum. This is despite him taking Lasix at home and states he has had increasingly decreased urine output. The patient was kidney functions are little elevated which he states it was new for him his BNP slightly elevated as well and he says he has not no cardiac history. I ordered 80 IV of Lasix for the patient and spoke with the hospitalist for admission. Differential Diagnosis End-stage liver disease. Acute kidney injury. [place] Departure Disposition: ADMITTED INPATIENT Admitted to Inpatient Unit: yes, to hospitalist Admission Level of Care: Med/Surg Impression: Primary Impression: Anasarca Additional Impressions: YONNY (acute kidney injury) Pleural effusion Liver failure Condition: Stable Referrals: NO PRIMARY CARE PROVIDER (PCP) Signature Scribe Signature: No scribe Attestation: The note accurately reflects work and decisions made by me.Mark RAGSDALE 07/15/24 00:13 MARK POWERS Jul 14, 2024 22:57
--- NOTE | 2024-07-14 23:09 | ELECTROCARDIOGRAPH REPORT ---
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 Sai Salazar Measurements Intervals [employer] Rate: 77 P: 79 MO: 150 QRS: 82 QRSD: 66 T: 0 QT: 540 QTc: 612 Interpretive Statements Sinus rhythm Borderline right axis deviation Low voltage, precordial leads Prolonged QT interval Electronically Signed On 07-14-2024 23:36:[address] Sai Salazar Please click the below link to view image of tracing.
[2024-07-14 23:24] LABS: BASOPHILS % (AUTO) 0.6 % (0-1); EOSINOPHILS # (AUTO) 0.1 X10'3 (0-0.9); EOSINOPHILS % (AUTO) 1.5 % (0-6); HEMATOCRIT 32.1 % (42.0-52.0); HEMOGLOBIN 10.8 g/dl (14.0-17.9); LYMPHOCYTES # (AUTO) 0.9 X10'3 (1.1-4.8); LYMPHOCYTES % (AUTO) 13.2 % (21-51); MEAN CORPUSCULAR HEMOGLOBIN 33.9 PG (27.0-31.0); MEAN CORPUSCULAR HGB CONC 33.6 g/dL (33.0-36.5); MEAN CORPUSCULAR VOLUME 100.9 FL (78-98); MEAN PLATELET VOLUME 8.2 FL (7.4-10.4); MONOCYTES # (AUTO) 0.7 X10'3 (0-0.9); MONOCYTES % (AUTO) 10.3 % (2-12); NEUTROPHILS # (AUTO) 4.8 X10'3 (1.8-7.7); NEUTROPHILS % (AUTO) 74.4 % (42-75); PLATELET COUNT 239 X10'3 (140-440); RED BLOOD COUNT 3.18 X10'6 (4.70-6.10); RED CELL DISTRIBUTION WIDTH 16.3 % (11.5-14.5); WHITE BLOOD COUNT 6.5 X10'3 (4.5-11.0)
[2024-07-14 23:49] LABS: APTT 29 SECONDS (22-32); INR 1.2 INR; PROTHROMBIN TIME 12.5 SECONDS (9.0-12.0)
[2024-07-14 23:51] LABS: ALANINE AMINOTRANSFERASE 13 U/L (12-78); ALBUMIN 2.4 G/DL (3.4-5.0); ALBUMIN/GLOBULIN RATIO 0.5 (1.1-1.5); ALKALINE PHOSPHATASE 160 IU/L (46-116); ANION GAP 6 (8-16); ASPARTATE AMINO TRANSFERASE 20 U/L (10-37); BILIRUBIN,TOTAL 2.5 MG/DL (0.1-1.0); BLOOD UREA NITROGEN 30 MG/DL (7-18); BUN/CREATININE RATIO 19.1 (10.0-20.0); CALCIUM 9.2 MG/DL (8.5-10.1); CHLORIDE 102 MMOL/L (99-107); CREATININE 1.57 MG/DL (0.60-1.10); GLUCOSE 90 MG/DL (70-104); POTASSIUM 4.3 MMOL/L (3.5-5.1); SODIUM 134 MMOL/L (135-145); TOTAL CARBON DIOXIDE 26.4 MMOL/L (24-32); TOTAL PROTEIN 7.3 G/DL (6.4-8.2); eCRCL 52 ML/MIN; eGFR 44 ML/MIN
[2024-07-14 23:59] LABS: PRO BRAIN NATRIURETIC PEPTIDE 2044 PG/ML (0-125)
[2024-07-15] VITALS (11 sets, daily range): BP systolic 74–110; BP diastolic 41–66; PULSE 82–90; RESP 14–19; TEMP 97.3–98.8; O2SAT 90–97
[2024-07-15] MEDS ORDERED: magnesium hydroxide 30ml (MOM) UD suspension PO PRN (00:35)
[2024-07-15] MEDS ORDERED: potassium Cl 20 mEq SR tablet PO PRN ×2 (00:35)
[2024-07-15] MEDS ORDERED: magnesium sulf-water 4G/100mL 100 ML IV PRN (00:35)
[2024-07-15] MEDS ORDERED: acetaminophen 325mg tablet PO PRN (00:35)
[2024-07-15] MEDS ORDERED: magnesium sulf-water 2g/50mL 50 ML IV PRN (00:35)
[2024-07-15] MEDS ORDERED: mag hydrox/Alum hydrox/simeth 30ml oral suspension PO PRN (00:35)
[2024-07-15] MEDS ORDERED: magnesium Cl slow-release 64mg tablet PO PRN (00:35)
[2024-07-15] MEDS: midodrine tablet 2.5 MG TABLET PO SCH (00:35)
[2024-07-15] MEDS ORDERED: PERFLUTREN PROTEIN-A MICROSPHR (Optison) 0.22 MG/ML 3ML VIAL IV PRN (00:35)
[2024-07-15] MEDS: rifaximin 550mg tablet PO SCH (00:35)
[2024-07-15] MEDS ORDERED: potassium Cl 40MEQ/1/2NS 520ml 520 ML IV PRN (00:35)
--- NOTE | 2024-07-15 00:58 | HISTORY AND PHYSICAL-Residence ---
History & Physical Providers to CC Resident Creating Document: VALENTÍN JOSEPH, RES CC: WIN HOLLOWAY MD ~ History of Present Illness Reason for Admit\Complaint: SOB History of Present Illness A 68-year-old male with the diagnosis of end-stage liver disease presented to the ED with gradual worsening of shortness of breaths over a period of 3-4 weeks. Patient states that his shortness of breaths has worsened to the point that he would feel short of breaths during conversations. Patient also endorses sharp pain in the abdomen with a severity of 10/10 especially in the right side with no radiation with no aggravating or relieving factors. Patient also endorses intermittent associated nausea and vomitings. Patient was diagnosed with end-stage liver disease one year ago was on the transplant list but taken off of it as his clinical condition would not allow him to tolerate surgery. And had multiple similar episodes where and he underwent paracentesis. Patient consumed alcohol until 2022 when he quit. Allergies: Coded Allergies: No Known Allergies (Unverified , 07/26/19) Home Medications Home Medications Active Reported Lidocaine Pain Relief (Lidocaine) 4 % Adh..patch 1 Patch TOP DAILY 30 Days Prilosec (Omeprazole) 40 Mg Capsule 1 Cap PO QAM K-Dur (Potassium Chloride) 10 Meq Tab.prt.sr 1 Tab PO DAILY Furosemide 20 Mg Tablet 2 Tab PO DAILY Spironolactone 50 Mg Tablet 2 Tab PO DAILY Metoprolol Succinate 25 Mg Tab.sr.24h 1 Tab PO DAILY Escitalopram Oxalate 20 Mg Tablet 1 Tab PO DAILY Past Medical History Past Medical History End-stage liver disease Alcohol use disorder Past Surgical History Surgical History Comment Appendicectomy and orthopedic surgeries Past Social History Social History Comment Patient lives at home with his [facility] 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 [employer] and also [facility] [employer] Used to smoke one pack of cigarettes per day for the last 20 years, came down to 2-3 per day and quit a month ago Denies drug/marijuana use Uses cane/walker for walking aids Smoking: Non-Smoker Alcohol Use: Heavy Drug Use: None Lives with: Spouse Lives In: Home Occupation: employed ROS ROS All other systems negative except for the pertinent positives mentioned in the HPI Exam Vitals: Vital Signs Date Time Temp Pulse Resp B/P (MAP) Pulse Ox O2 Delivery O2 Flow Rate FiO2 07/14/24 23:19 97.9 93 22 112/74 (87) 91 0 General: General: Alert, awake, oriented, not in acute distress HEENT: PERRLA, no icterus, pallor, lymphadenopathy, carotid bruit Respiratory system: Bilateral crackles present in all lung regions CVS: S1-S2 heard, no murmurs/rubs/gallop GI: Tenderness in the right hypochondrial region, Soft, no abdominal distention, no guarding/rigidity, bowel sounds present Neuro: No focal neurological deficits present Genitourinary: Bilateral uniform Swelling of the scrotum presents Extremities: Bilateral 3+ pitting edema present Musculoskeletal: No deformities Skin: Warm and dry Psych: Normal affect and mood Diagnostic Data Last Recorded Lab Results: 07/14/24231307/14/242313 Diagnostic Data: Laboratory Tests Test 07/14/24 23:14 Prothrombin Time 12.5 SECONDS (9.0-12.0) H INR International Normalized Ratio 1.2 INR Activated Partial Thromboplast Time 29 SECONDS (22-32) Coagulation Comments Advance Care Planning Advanced Care plannin - 30 Minutes (I spent 20 minutes discussing various resuscitative measures and the patient decided to be DNR) Additional Plan Assessment: A 68-year-old male presented to the ED with gradual worsening of shortness of breaths over a period of 3-4 weeks. Patient was admitted for the evaluation and management of acute respiratory distress and end-stage liver disease. Plan: Acute respiratory distress 2/2 pulmonary congestion with unilateral left-sided pleural effusion Evaluate for heart failure Chest x-ray (radiologist read pending): Pulmonary edema with left-sided pleural effusion Follow up with 2D echo and CT chest Consider thoracocentesis based on CT chest findings Elevated proBNP is probably secondary to end-stage liver disease, evaluate for heart failure Patient was currently on 1.5 L of nasal cannula, titrate to maintain SpO2 greater than 95% IV Lasix 80 mg b.i.d. End-stage liver disease secondary to alcohol use disorder Hyperbilirubinemia, hypoalbuminemia Protein energy malnutrition Evaluate for ascites Normal ammonia levels, INR, AST and ALT Follow up with CT abdomen IV Lasix 80 mg b.i.d., rifaximin 550 mg p.o. b.i.d., midodrine 10 mg p.o. q.8h, spironolactone 100 mg p.o. daily Consider Paracentesis based on CT abdomen findings Continue to monitor vitals CKD stage IIIB Baseline creatinine: 1.29, EGFR: 44 Chronically elevated creatinine Continue to monitor BMP Code status: DNR Diet: Sodium restricted diet DVT prophylaxis: SCD Disposition: Admit to PCU, follow up with CT abdomen, CT chest Valentín Joseph MD Internal Medicine, PGY 1 discussed with resident team agree with assessment and plan documented spent 35 minutes in care Date of Service: Jul 15, 2024 Billing Provider: WIN HOLLOWAY MD, SIVA, RES Jul 15, 2024 00:58 WIN HOLLOWAY MD Jul 15, 2024 03:17
--- NOTE | 2024-07-15 01:08 | RADIOLOGY REPORT ---
Clinical History Hypotension Comparison CHEST on 09/11/2020, 1 images. Technique: single view chest Without Contrast ROMMEL EPPERSON, [id number] FINDINGS: Comparison x-ray dated 09/11/20 Trachea is midline, heart size probably within normal limits. There is a left pleural effusion. There is no definite pulmonary vascular congestion, no pneumothorax or pneumomediastinum. There is retrocardiac left lower lobe probable atelectasis or infiltrate. Osseous structures do not suggest acute pathology, postop spine with hardware again noted. IMPRESSION: 1. Retrocardiac left lower lobe probable atelectasis and/or infiltrate associated with left pleural effusion This report was electronically signed by Rommel Starkey MD on 07/15/2024 1:04:42 AM.
[2024-07-15] MEDS: HYDROcodone/acetaminophen 5mg/325mg tablet PO PRN (01:09)
[2024-07-15] MEDS: furosemide 10 MG/1 ML 10ml inj IV ONE (01:24)
[2024-07-15] MEDS ORDERED: MIDO2.5T PO (01:45)
[2024-07-15] MEDS ORDERED: MAGN400C PO (01:47)
[2024-07-15] MEDS ORDERED: RIFA550T PO (01:47)
[2024-07-15 01:49] LABS: BILIRUBIN,URINE NEGATIVE (Neg); CLARITY,URINE SLIGHTLY CLOUDY (Clear); COLOR,URINE YELLOW (Yellow); GLUCOSE, URINE NEGATIVE (Neg); KETONES,URINE TRACE mg/dl (Neg); LEUKOCYTE ESTERASE ,URINE NEGATIVE (Neg); NITRITES, URINE NEGATIVE (Neg); OCCULT BLOOD,URINE NEGATIVE (Neg); PROTEIN,URINE NEGATIVE (Neg)
[2024-07-15] MEDS ORDERED: LACT10PA5 PO (01:51)
[2024-07-15 01:52] LABS: UA COLLECTION TYPE NON-SPECIFIED
[2024-07-15 01:55] LABS: MUCUS STRANDS FEW /LPF (Neg); SQUAMOUS EPITHELIAL CELL,UR NONE SEEN /LPF (FEW)
[2024-07-15 01:56] LABS: BACTERIA,URINE FEW /HPF (Neg); RBC,URINE 0-2 /HPF (0-2); WBC,URINE 0-4 /HPF (0-4)
--- NOTE | 2024-07-15 03:51 | RADIOLOGY REPORT ---
Exam: CT CT CHEST ABDOMEN PELVIS History: ascites, ESLD Comparison Study: Chest x-ray 07/14/2024 TECHNIQUE: Multidetector CT of the chest, abdomen and pelvis was performed from lung bases to pubic s ymphysis. Imaging was performed without IV contrast. Axial, coronal and sagittal multiplanar reformat s were obtained from the axial data set by the technologist. Radiation optimization: All CT scans at this facility use at least one of these dose optimization seamus hniques: automated exposure control mA and/or kV adjustment per patient size (includes targeted exam s where dose is matched to clinical indication) or iterative reconstruction. Radiation Dose Information: CT Dose: CTDI volume is 32.0 mGy. Dose-length product is 04/24/2000 mGy*cm FINDINGS: Evaluation of solid organs is limited due to lack of intravenous contrast use. The airway is patent. There are severe coronary artery calcifications. There is moderate pericardial effusion. There is a moderate right and small left pleural effusion. No significant mediastinal or hi lar adenopathy. Bibasilar atelectasis with possible consolidation of the left lower lobe. Bilateral m arked gynecomastia. The liver is shrunken and cirrhotic appearing. The spleen and pancreas appear grossly unremarkable. E mbolization coils in the left upper quadrant. A TIPS is noted, relatively satisfactory in position. H yperdense material likely within a shrunken gallbladder. The stomach is nondistended, however the gastric wall appears mildly thickened. No evidence of bowel obstruction or focal bowel wall thickening. Moderate perihepatic ascites and small amount of free flu id in the pelvis. There is diffuse subcutaneous edema. No evidence of free air. Nonobstructed bowel c ontaining right lower quadrant hernia measuring 5.2 cm with 2.3 cm neck. Fluid containing 3.6 cm umbi lical hernia. Degenerative changes of the spine without suspicious osseous lesion. IMPRESSION: 1. Findings of hepatic cirrhosis with TIPS 2. Diffuse anasarca with moderate pericardial effusion, moderate right and small left pleural effusio n, moderate perihepatic ascites and small amount of free pelvic fluid, diffuse subcutaneous edema. 3. Possible gastric wall thickening, however likely due to nondistention. Correlation with clinical symptoms and follow-up is recommended. 4. Nonobstructed small bowel containing right lower quadrant hernia and fluid containing umbilical he rnia. HS:Y
[2024-07-15] MEDS: morphine 2 MG/ML inj. syringe IV PRN ×2 (04:27→13:50)
[2024-07-15 07:05] LABS: MAGNESIUM 1.9 MG/DL (1.5-2.4); POTASSIUM 3.9 MMOL/L (3.5-5.1)
[2024-07-15] MEDS: K and/or MAG REPLACEMENT MC SCH (08:00)
[2024-07-15 09:00] LABS: INR 1.2 INR; PROTHROMBIN TIME 12.5 SECONDS (9.0-12.0)
[2024-07-15] MEDS: furosemide 40mg/4ml inj IV SCH ×2 (09:33→13:00)
[2024-07-15] MEDS: spironolactone 50 MG tablet PO SCH (09:40)
[2024-07-15] MEDS: docusate sod 100mg capsule PO SCH (09:41)
[2024-07-15] MEDS: HYDROcodone/acetaminophen 10/325mg tab PO PRN (11:38)
[2024-07-15] MEDS: lactose-reduced food (Ensure Enlive) - 237ml bottle PO SCH (18:00)
--- NOTE | 2024-07-15 20:49 | PROGRESS NOTE ---
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 Patient wants to go on hospice and palliative care which I discussed in meeting in detail. enterprise services manager in her also aware regarding the hospice and palliative care needs Objective Vital Signs Date Time Temp Pulse Resp B/P (MAP) Pulse Ox O2 Delivery O2 Flow Rate FiO2 07/15/24 19:46 17 07/15/24 18:30 91 07/15/24 18:00 97.3 90/62 (71) 93 Nasal Cannula 1.0 Result Diagram: 07/14/24 2312 07/15/24 0637 General-patient not in any acute distress, alert awake oriented, chronically ill-appearing HEENT-atraumatic normocephalic, neck supple without elevated JVD, no thyromegaly or carotid bruit. No lymphadenopathy bilaterally. Eyes-no icterus or pallor seen in eyes Chest-decreased lung sounds over lung base to auscultation bilaterally, breathing nonlabored no tachypnea, no wheezing, Heart-S1-S2 normal, regular heart rate no murmur Abdomen bowel sounds positive on auscultation, soft distended nontender no guarding, no rigidity Skin no active skin rash. Signs of soft tissue swelling present over abdomen Neurology-grossly intact, nonfocal alert awake oriented Extremity- 2 plus pedal edema able to move all 4 extremities Psychiatry - patient is not confused or agitated cooperated during physical examination Coagulation Studies Laboratory Tests Test 07/14/24 23:14 07/15/24 07:55 Activated Partial Thromboplast Time 29 SECONDS (22-32) Prothrombin Time 12.5 SECONDS (9.0-12.0) H INR International Normalized Ratio 1.2 INR Coagulation Comments Problem\Assessment\Plan A 68-year-old male presented to the ED with gradual worsening of shortness of breaths over a period of 3-4 weeks. Patient was admitted for the evaluation and management of acute respiratory distress and end-stage liver disease. Acute respiratory distress 2/2 pulmonary congestion with unilateral left-sided pleural effusion Evaluate for heart failure Chest x-ray Retrocardiac left lower lobe probable atelectasis and/or infiltrate associated with left pleural effusion will Follow up with 2D echo and CT chest Elevated proBNP is probably secondary to end-stage liver disease, evaluate for heart failure Patient was currently on 1.5 L of nasal cannula, titrate to maintain SpO2 greater than 95% IV Lasix 80 mg b.i.d. End-stage liver disease secondary to alcohol use disorder Hyperbilirubinemia, hypoalbuminemia Protein energy malnutrition Evaluate for ascites Normal ammonia levels, INR, AST and ALT Follow up with CT abdomen IV Lasix 40 mg t.i.d., rifaximin 550 mg p.o. b.i.d., midodrine 10 mg p.o. q.8h, spironolactone 100 mg p.o. daily Continue to monitor vitals CKD stage IIIB Baseline creatinine: 1.29, EGFR: 44 Chronically elevated creatinine Continue to monitor BMP Patient wants to go on hospice and palliative care which I discussed in meeting in detail. enterprise services manager in her also aware regarding the hospice and palliative care needs Date of Service: Jul 15, 2024 Billing Provider: [facility] MD Common Visit Codes: [id number] INP/OBS CARE(HIGH) [facility] MD Jul 15, 2024 20:49
[2024-07-16 05:58] LABS: INR 1.2 INR; PROTHROMBIN TIME 12.4 SECONDS (9.0-12.0)
[2024-07-16 06:00] VITALS: BP 93/59; PULSE 80; RESP 17; TEMP 97.6; O2SAT 98
[2024-07-16 07:20] LABS: BASOPHILS % (AUTO) 0.5 % (0-1); EOSINOPHILS # (AUTO) 0.1 X10'3 (0-0.9); HEMOGLOBIN 10.3 g/dl (14.0-17.9); LYMPHOCYTES # (AUTO) 0.8 X10'3 (1.1-4.8); LYMPHOCYTES % (AUTO) 13.1 % (21-51); MEAN CORPUSCULAR HEMOGLOBIN 34.4 PG (27.0-31.0); MEAN CORPUSCULAR HGB CONC 34.3 g/dL (33.0-36.5); MEAN CORPUSCULAR VOLUME 100.5 FL (78-98); MEAN PLATELET VOLUME 8.4 FL (7.4-10.4); MONOCYTES # (AUTO) 0.6 X10'3 (0-0.9); MONOCYTES % (AUTO) 10.3 % (2-12); NEUTROPHILS # (AUTO) 4.4 X10'3 (1.8-7.7); NEUTROPHILS % (AUTO) 74.1 % (42-75); PLATELET COUNT 188 X10'3 (140-440); RED BLOOD COUNT 2.99 X10'6 (4.70-6.10); RED CELL DISTRIBUTION WIDTH 16.2 % (11.5-14.5); WHITE BLOOD COUNT 5.9 X10'3 (4.5-11.0)
[2024-07-16] MEDS: ondansetron/PF 4mg/2ml inj IV PRN (07:27)
[2024-07-16 07:36] LABS: ALANINE AMINOTRANSFERASE 11 U/L (12-78); ALBUMIN 2.3 G/DL (3.4-5.0); ALBUMIN/GLOBULIN RATIO 0.5 (1.1-1.5); ALKALINE PHOSPHATASE 135 IU/L (46-116); ANION GAP 6 (8-16); ASPARTATE AMINO TRANSFERASE 21 U/L (10-37); BILIRUBIN,TOTAL 2.7 MG/DL (0.1-1.0); BLOOD UREA NITROGEN 32 MG/DL (7-18); BUN/CREATININE RATIO 20.3 (10.0-20.0); CALCIUM 8.9 MG/DL (8.5-10.1); CHLORIDE 102 MMOL/L (99-107); CREATININE 1.58 MG/DL (0.60-1.10); GLUCOSE 101 MG/DL (70-104); MAGNESIUM 1.8 MG/DL (1.5-2.4); SODIUM 134 MMOL/L (135-145); TOTAL CARBON DIOXIDE 26.5 MMOL/L (24-32); TOTAL PROTEIN 6.9 G/DL (6.4-8.2); eCRCL 51 ML/MIN; eGFR 44 ML/MIN
[2024-07-16 09:15] VITALS: RESP 11
--- NOTE | 2024-07-16 20:13 | DISCHARGE SUMMARY ---
Discharge Summary Providers to CC ~ Discharge Summary Admission Diagnosis: END STAGE LIVER DISEASE Hospital Course DATE OF ADMISSION: July 15, 2024 DATE OF DISCHARGE: July 16, 2024 CBC testing done on July 16, 2024 WBC 5.9, hemoglobin 10.3 hematocrit 30.0 platelet count 188. Serum chemistry done on July 16, 2024 sodium 134 potassium 4.0 creatinine 1.58 GFR 44 total bilirubin 2.7 normal AST ALT alkaline phosphatase 135. ProBNP 2043 CT CHEST ABDOMEN PELVIS-IMPRESSION: 1. Findings of hepatic cirrhosis with TIPS 2. Diffuse anasarca with moderate pericardial effusion, moderate right and small left pleural effusion, moderate perihepatic ascites and small amount of free pelvic fluid, diffuse subcutaneous edema. 3. Possible gastric wall thickening, however likely due to nondistention. Correlation with clinical symptoms and follow-up is recommended. 4. Nonobstructed small bowel containing right lower quadrant hernia and fluid containing umbilical hernia. Discharge Diagnosis\\Comment: Acute respiratory distress 2/2 pulmonary congestion with unilateral left-sided pleural effusion Evaluate for heart failure End-stage liver disease secondary to alcohol use disorder Hyperbilirubinemia, hypoalbuminemia Protein energy malnutrition ascites CKD stage IIIB Operations\\Procedures: None Consultants: None Complications: None Condition on DC: Stable Continued Medications: Escitalopram Oxalate (Escitalopram Oxalate) 20 Mg Tablet 1 TAB PO HS, TAB Furosemide (Furosemide) 20 Mg Tablet 2 TAB PO DAILY Lactulose (Lactulose) 10 Gram Packet 1 PKT PO PRN PRN for constipation for 30 Days, #30 PKT 0 Refills Lidocaine (Lidocaine Pain Relief) 4 % Adh..patch 1 PATCH TOP DAILY for 30 Days, #30 PATCH 0 Refills Magnesium Oxide (Magnesium) 400 Mg Magnesium Capsule 1 CAP PO DAILY for 30 Days, #30 CAP 0 Refills Metoprolol Succinate (Metoprolol Succinate) 25 Mg Tab.sr.24h 1 TAB PO DAILY, TAB Midodrine Hcl* (Proamatine*) 2.5 Mg Tablet 4 TAB PO TID, TAB Omeprazole (Prilosec) 40 Mg Capsule 1 CAP PO QAM Potassium Chloride (K-Dur) 10 Meq Tab.prt.sr 2 TAB PO DAILY Rifaximin (Xifaxan) 550 Mg Tablet 1 TAB PO Q12H for 10 Days, #20 TAB 0 Refills Spironolactone (Spironolactone) 50 Mg Tablet 2 TAB PO DAILY Discharge Summary: Per admitting provider's history and physical notes " A 68-year-old male with the diagnosis of end-stage liver disease presented to the ED with gradual worsening of shortness of breaths over a period of 3-4 weeks. Patient states that his shortness of breaths has worsened to the point that he would feel short of breaths during conversations. Patient also endorses sharp pain in the abdomen with a severity of 10/10 especially in the right side with no radiation with no aggravating or relieving factors. Patient also endorses intermittent associated nausea and vomitings. Patient was diagnosed with end-stage liver disease one year ago was on the transplant list but taken off of it as his clinical condition would not allow him to tolerate surgery. 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 Patient wants to go on hospice and palliative care which I discussed in meeting in detail yesterday catalogue and special products manager Leilani also aware regarding the hospice and palliative care needs. Patient wants to go on hospice care but at the same time he wanted to continue his medications which was real dilemma. During hospitalization patient was treated for Acute respiratory distress 2/2 pulmonary congestion with unilateral left-sided pleural effusion Evaluate for heart failure Chest x-ray Retrocardiac left lower lobe probable atelectasis and/or infiltrate associated with left pleural effusion will Follow up with 2D echo and CT chest Elevated proBNP is probably secondary to end-stage liver disease, evaluate for heart failure Patient was currently on 1.5 L of nasal cannula, titrate to maintain SpO2 greater than 95% IV Lasix 80 mg b.i.d. End-stage liver disease secondary to alcohol use disorder Hyperbilirubinemia, hypoalbuminemia Protein energy malnutrition Evaluate for ascites Normal ammonia levels, INR, AST and ALT Follow up with CT abdomen IV Lasix 40 mg t.i.d., rifaximin 550 mg p.o. b.i.d., midodrine 10 mg p.o. q.8h, spironolactone 100 mg p.o. daily Continued to monitor vitals CKD stage IIIB Baseline creatinine: 1.29, EGFR: 44 Chronically elevated creatinine Continue to monitor BMP Patient's condition was clinically stable throughout the hospitalization. he has been afebrile and getting discharged to rehab in stable condition. Patient is seen and examined on the day of discharge. Patient is discharged on home hospice services today. General-patient not in any acute distress, alert awake oriented, chronically ill-appearing HEENT-atraumatic normocephalic, neck supple without elevated JVD, no thyromegaly or carotid bruit. No lymphadenopathy bilaterally. Eyes-no icterus or pallor seen in eyes Chest-decreased lung sounds over lung base to auscultation bilaterally, breathing nonlabored no tachypnea, no wheezing, Heart-S1-S2 normal, regular heart rate no murmur Abdomen bowel sounds positive on auscultation, soft distended nontender no guarding, no rigidity Skin no active skin rash. Signs of soft tissue swelling present over abdomen Neurology-grossly intact, nonfocal alert awake oriented Extremity- 2 plus pedal edema able to move all 4 extremities Psychiatry - patient is not confused or agitated cooperated during physical examination *Problems/Diagnosis: (1) Ascites due to alcoholic cirrhosis Total Time Spent on D/C: > 30 Minutes Date of Service: Jul 16, 2024 Billing Provider: VA FLEMING MD Common Visit Codes: 27689-XMU/OBS DISCH DAY >30min VA FLEMING MD Jul 16, 2024 20:12
== END 2024-07-16 11:30 | disposition hospice, home (50) | DRG 291 ==
LOC: ER 21:14 → ED HOLD 07-15 00:14 → PCU 3S 07-15 03:20
PROVIDERS: ADMIT Internal Medicine Pulmonary Disease; ATTEND Internal Medicine
DX: I13.0 Hypertensive heart and chronic kidney disease with heart failure and stage 1 through stage 4 chronic kidney disease, or unspecified chronic kidney disease (principal); E43 Unspecified severe protein-calorie malnutrition; I50.33 Acute on chronic diastolic (congestive) heart failure; Z68.41 Body mass index [BMI] 40.0-44.9, adult; N17.9 Acute kidney failure, unspecified; R06.03 Acute respiratory distress; K72.10 Chronic hepatic failure without coma; N18.32 Chronic kidney disease, stage 3b; F32.A Depression, unspecified; K70.31 Alcoholic cirrhosis of liver with ascites; K21.9 Gastro-esophageal reflux disease without esophagitis; F10.10 Alcohol abuse, uncomplicated; E88.09 Other disorders of plasma-protein metabolism, not elsewhere classified; Z79.899 Other long term (current) drug therapy; Z51.5 Encounter for palliative care; Z90.49 Acquired absence of other specified parts of digestive tract
CPT/HCPCS: 36415; 71045; 71250; 74176; 80053; 81001; 82140; 83735; 83880; 84132; 85025; 85610; 85730; 87081; 93005; 99285; A6590; G0378; J1938; J1940; J2270; J2405